=== PATIENT | male | born 1945 | race Caucasian/White ===

== ENCOUNTER 2017-11-10 19:07 | Emergency (ER) | payer MEDICARE ==
[~2017-11-10] VITALS: Ht 180.3 cm; Wt 74.8 kg
[~2017-11-10 19:07] MED LIST: ASPI81EC; CLOP75; DIPH50 PO; DOXE25; ERGO400 PO; OXYACE5T PO; RANI150 PO; RXOXYACE PO; [UNRECOGNIZED DRUG - REMARK]; [UNRECOGNIZED DRUG - SUPPLY]
== END 2017-11-10 21:47 | disposition home or self-care (01) ==
LOC: ER 19:07
DX: S61.011A Laceration without foreign body of right thumb without damage to nail, initial encounter (principal); Z87.891 Personal history of nicotine dependence; W26.8XXA Contact with other sharp object(s), not elsewhere classified, initial encounter
CPT/HCPCS: 12001; 99283

== ENCOUNTER 2024-01-03 10:55 | Emergency (ER) | payer MEDICARE, OTHER ==
[~2024-01-03] VITALS: Ht 177.8 cm; Wt 77.1 kg
[2024-01-03 11:56] LABS: Albumin, Blood 3.5 g/dL (3.4-5.0); Albumin/Globulin Ratio 1.1 (0.8-1.8); Bilirubin, Total 0.7 mg/dL (0.1-1.0); Bun/Creatinine Ratio 31.7 (12.0-20.0); Calcium, Blood 8.5 mg/dL (8.5-10.1); Creatinine, Blood 1.01 mg/dL (0.60-1.20); Globulin, Blood 3.3 g/dL (2.2-4.0); Potassium, Blood 5.2 mmol/L (3.5-5.5); Total Protein, Blood 6.8 g/dL (6.4-8.2)
[2024-01-03 13:42] LABS: Hematocrit 43.1 % (37.0-53.0); Hemoglobin 15.3 g/dL (13.5-17.5); Mean Corpuscular HGB 33.2 pg (26.0-34.0); Mean Corpuscular HGB Conc 35.5 g/dL (31.5-36.5); Mean Corpuscular Volume 94 fL (80-100); Mean Platelet Volume 9.1 fL (9.1-12.4); Platelet Count 189 K/mm3 (150-400); RDW Standard Deviation 41.4 fL (35.1-46.3); Red Blood Cell Count 4.61 M/mm3 (4.30-5.90)
[2024-01-03 14:08] LABS: BAND PERCENT MAN 1 % (0-8); BASOPHILS ABSOLUTE MAN 0.09 K/mm3 (0.00-0.23); BASOPHILS PERCENT MAN 1 % (0-2); EOSINOPHILS PERCENT MAN 0 % (0-6); LYMPHOCYTES % ATYPICAL MANUAL 1 % (0-0); LYMPHOCYTES ABSOLUTE MAN 0.63 K/mm3 (0.84-5.20); LYMPHOCYTES PERCENT MAN 6 % (21-46); METAMYELOCYTE ABSOLUTE MAN 0.18 K/mm3 (0.00-0.00); METAMYELOCYTE PERCENT MAN 2 % (0-0); MONOCYTES ABSOLUTE MAN 0.36 K/mm3 (0.16-1.47); MONOCYTES PERCENT MAN 4 % (4-13); MYELOCYTE ABSOLUTE MAN 0.27 K/mm3 (0.00-0.00); MYELOCYTE PERCENT MAN 3 % (0-0); NEUTROPHILS ABSOLUTE MAN 7.55 K/mm3 (1.96-9.15); SEG NEUTROPHILS PERCENT MAN 82 % (41-73); TOTAL CELLS COUNTED 100
[2024-01-03 14:15] VITALS: BP 176/98
== END 2024-01-03 14:28 | disposition home or self-care (01) ==
LOC: ER 10:55
PROVIDERS: Physician Assistant
DX: R07.9 Chest pain, unspecified (principal); Z87.891 Personal history of nicotine dependence
CPT/HCPCS: 71046; 80053; 84484; 85025; 85379; 99285-25

== ENCOUNTER 2024-08-09 09:40 | Observation (INO) | payer OTHER, MEDICARE ==
[~2024-08-09] VITALS: Ht 177.8 cm; Wt 72.3 kg
[2024-08-09 10:22] LABS: BASOPHILS ABSOLUTE AUTO 0.01 K/mm3 (0.00-0.23); BASOPHILS PERCENT AUTO 0 % (0-2); EOSINOPHILS ABSOLUTE AUTO 0.13 K/mm3 (0.00-0.68); EOSINOPHILS PERCENT AUTO 4 % (0-6); Hematocrit 40.7 % (37.0-53.0); Hemoglobin 14.3 g/dL (13.5-17.5); IMMATURE GRAN ABSOLUTE AUTO 0.02 K/mm3 (0.00-0.10); IMMATURE GRAN PERCENT AUTO 1 % (0-1); LYMPHOCYTES ABSOLUTE AUTO 0.97 K/mm3 (0.84-5.20); LYMPHOCYTES PERCENT AUTO 32 % (21-46); MONOCYTES ABSOLUTE AUTO 0.36 K/mm3 (0.16-1.47); MONOCYTES PERCENT AUTO 12 % (4-13); Mean Corpuscular HGB 33.6 pg (26.0-34.0); Mean Corpuscular HGB Conc 35.1 g/dL (31.5-36.5); Mean Corpuscular Volume 96 fL (80-100); Mean Platelet Volume 9.4 fL (9.1-12.4); NEUTROPHILS ABSOLUTE AUTO 1.51 K/mm3 (1.96-9.15); NEUTROPHILS PERCENT AUTO 50 % (41-73); Platelet Count 149 K/mm3 (150-400); RDW Coefficient Variation 12.4 % (11.7-14.2); Red Blood Cell Count 4.26 M/mm3 (4.30-5.90)
[2024-08-09 10:34] LABS: Bun/Creatinine Ratio 16.6 (12.0-20.0); Calcium, Blood 8.7 mg/dL (8.5-10.1); Creatinine, Blood 0.96 mg/dL (0.60-1.20); Potassium, Blood 4.4 mmol/L (3.5-5.5)
[2024-08-09] MEDS ORDERED: Nitroglycerin 0.4 MG SUBL SL ONE (11:45)
[2024-08-09] MEDS ORDERED: FLU VACC TS2024-25(6MOS UP)/PF 45 MCG/0.5 ML SYRINGE IM PRN (14:30)
[2024-08-09] MEDS ORDERED: Nitroglycerin 0.4 MG SUBL SL PRN (14:35)
[2024-08-09] MEDS ORDERED: Clopidogrel Bisulfate 300 MG Cap PO ONE (14:35)
[2024-08-09 15:21] LABS: Anti-Xa UFH, PHA Monitoring <0.10 IU/mL; International Normalized Ratio 1.01; Prothrombin Time Results 10.8 Sec (9.7-11.5)
[2024-08-09] MEDS ORDERED: Dose Adjust by Pharmacy XX STA ×2 (15:30→23:23)
[2024-08-09] MEDS ORDERED: Heparin Sodium 5000 Units/ML 1ML MDV IV ONE (15:35)
[2024-08-09] MEDS ORDERED: Heparin Sodium,Porcine/0.5 NS 500 ML IV SCH (15:35)
[2024-08-09 16:27] VITALS: BP 152/91
[2024-08-09] MEDS ORDERED: TAMS.4ER PO (16:39)
[2024-08-09] MEDS ORDERED: Atorvastatin 40 MG Tab PO SCH (16:55)
[2024-08-09] MEDS ORDERED: Metoprolol Tartrate 25 MG Tab PO SCH (17:00)
--- NOTE | 2024-08-09 17:17 | NUR ---
ADMIT SUMMARY THE PT WAS ADMITTED TO PCU 01 FROM THE ER. REPORT RECIEVED FROM PATRICK RN. PT WAS ABLE TO TRANSFER HIMSELF TO THE BED FROM THE [facility]. 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 SKIN W/O ANY BREAKDOWN OR INJURY. HEPARIN GTT INFUSING PER EMAR AND VERIFIED W/ ACCOUNT SERVICES REPRESENTATIVE. PT IS SR/ST 80'S-110'S ON TELE. BP W/ HTN, 25 MG LOPRESSER AND 80MG LIPITOR GIVEN PER EMAR. PT TAKES MEDICATIONS WHOLE WITH WATER. HE DENIES ANY ANGINA OR CHEST PRESSURE. HE IS ON RA W/ SP02 >93%. HE DENIES ANY SOB. DR. GARCIA CONSULTED AND SAW THE PT. PLAN FOR NPO AT 0000 AND ANGIOGRAM IN THE MORNING. ECHO ORDERED FOR TOMORROW. THE PT'S WAS CALLED AND UPDATED ON THE PLAN OF CARE. SEE NOTES FOR ANY UPDATES.
--- NOTE | 2024-08-09 21:18 | NUR ---
RECEIVED TROPONIN LAB RESULTS OF 2911 CALLED MD FONTANEZ AND INFORMED HIM OF THE RESULTS WITH NO NEW ORDERS
[2024-08-09 21:22] VITALS: BP 122/82
[2024-08-09] MEDS ORDERED: Tamsulosin HCl 0.4 MG Cap PO SCH (23:00)
[2024-08-10] VITALS (16 sets, daily range): BP systolic 94–145; BP diastolic 51–85
--- NOTE | 2024-08-10 01:32 | NUR ---
PHARMACY CALLED AT 2330 THAT PTS HEPARIN WAS AT 1.13 WHICH IS CRITICALLY HIGH. THEY STATED TO HOLD THE HEPARIN X 1 HOUR THEN START AGAIN AT 0030 AT 12U/KG/HR. HEPARIN WAS STOPPED AT 2330 AND RESTARTED AT 0030. LAB JUST CALLED WITH A CRITICAL HIGH ON HIS TROPONIN WHICH WAS 3529 WHICH CONTINUES TO TREND UP. CALLED MD AND INFORMED HIM OF THE CRITICAL TROPONIN.
[2024-08-10 05:06] LABS: Hematocrit 40.7 % (37.0-53.0); Hemoglobin 14.2 g/dL (13.5-17.5); Mean Platelet Volume 9.5 fL (9.1-12.4); Platelet Count 165 K/mm3 (150-400)
--- NOTE | 2024-08-10 05:32 | NUR ---
SHIFT SUMMARY PT ALERT ORIENTED X 4 ABLE TO VERBALIZE NEEDS CALLS APPROPRIATELY. HE HAD A ONE TIME LOW BP OF 97/59. REMAINS ON A HEPARIN DRIP AT 12U/KG/HR 17.5ML/HR. HIS TROPNINS HAVE BEEN INCREASING AND WERE 2912, 3529. HIS ANTIXA AT 2217 WAS 1.13 HEPARIN WAS PUT ON HOLD X 1 HR THEN RESTARTED AT A LOWER RATE. HE HAS A RT BKA HES BEEN NPO SINCE MIDNIGHT FOR A ECHO/ANGIOGRAM TO BE DONE TODAY. NO C/O CHEST PAIN OR PRESSURE. RESTING IN BED AT THIS TIME WITH CALL LIGHT IN REACH
[2024-08-10] MEDS ORDERED: Dose Adjust by Pharmacy XX STA (07:49)
[2024-08-10] MEDS ORDERED: Aspirin 81 MG Chew PO SCH (09:00)
[2024-08-10] MEDS ORDERED: Enoxaparin 40 MG/0.4 ML SYR SC SCH (09:00)
[2024-08-10] MEDS ORDERED: Clopidogrel Bisulfate 75 MG Tab PO SCH (09:00)
[2024-08-10] MEDS ORDERED: NS 250 ML IV ONE (09:09)
[2024-08-10] MEDS ORDERED: Heparin Sodium 1000 Units/ML 10ML MDV ONE (09:09)
[2024-08-10] MEDS ORDERED: Verapamil HCL 2.5 MG/ML 2ML Injection ONE (09:09)
[2024-08-10] MEDS ORDERED: NS 1,000 ML IV ONE ×2 (09:09→09:24)
[2024-08-10] MEDS ORDERED: FentaNYL Citrate 50 MCG/ML 2 ML Injection ONE (09:24)
[2024-08-10] MEDS ORDERED: Midazolam HCl 1MG / ML 2ML Vial ONE (09:24)
[2024-08-10] MEDS ORDERED: Tirofiban HCL Monohydrate 3.75 MG/15 ML Vial ONE (10:07)
[2024-08-10] MEDS ORDERED: Clopidogrel Bisulfate 300 MG Cap ONE (10:30)
--- NOTE | 2024-08-10 11:30 | NUR ---
PT BACK FROM ANGIOGRAM, BEDSIDE REPORT RECIEVED FROM AZUCENA BAUMAN RN. THE PT HAS RIGHT RADIAL ACCESS WITHA TR BAND INPLACE WITH 9CC OF AIR IN THE BALLOON. VS SEQUENCE SET UP AND VITAL SIGNS STABLE. THE PT STATES HE FEELS "MUCH BETTER" NOW. CAP REFILL IN RIGHT DISTAL FINGER W/ CAP REFILL <3 SEC. DENIES N/T. PT IS WITHOUT ANGINA OR CHEST PRESSURE. AFTER ABOUT 15 MINUTES BEING IN THE ROOM, THE RN WENT OT RECHECK ON THE PT'S WRIST AND A HEMATOMA HAD FORMED PROXIMAL TO THE TRBAND. OUTLINED WIHT A PEN AND 20 MINUTES OF MANUAL PRESSURE HELD. 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 DURING THE 20 MINUTES IN THE ROOM, POST ANGIO AND STENT EDUCATION WAS PROVIDED TO THE PT. CROSSBAR FRAME WIRER IN THE ROOM AND PREFORMING AN ECHO. THE PT'S CALLED THE BEDSIDE AND WAS UPDATED ON CARE. PT ATE A LATE BREAKFAST AND TOLERATED PO INTAKE WELL. SEE NOTES FOR ANY UPDATES.
--- NOTE | 2024-08-10 14:53 | NUR ---
TR BAND RECOVERED tr band fully recovered. cleaned with chg swab and tegaderm place over site. arm board intact. vital signs remain stable. bruising noted proximal to site. outlined. slight oozing noted. no pain. see notes for updates.
--- NOTE | 2024-08-10 17:31 | NUR ---
SHIFT SUMMARY THE PT REMAINS A&OX4, CALLS APPROPRAITELY, AND MAKES THEIR NEEDS KNOWN. PT HAS A R BKA AND USES PROSTESIS. SBA FOR TX. ON TELE SR 80'S, BP STABLE. HE IS ON RA AND DENIES ANY SOB. ANGIOGRAM TODAY W/ 1 STENT. SEE PREVIOUSE NOTE. SOME BRUISING STILL NOTED BUT TEGADERM C/D/I. NO C/O ANGINA OR CHEST PRESSURE. SEE NOTES FOR ANY UPDATES.
[2024-08-10] MEDS ORDERED: Atorvastatin 40 MG Tab PO SCH (21:00)
--- NOTE | 2024-08-10 23:11 | NUR ---
ASSUMPTION OF CARE ASSUMED PT'S CARE AT 1900,PT RESTING IN BED WATCHING TV.BEDSIDE REPORT COMPLETED.PLAN OF CARE REVIEWED WITH PT.PT DENIES CHEST PAIN/DISCOMFORT.DENIES GENERALIZED PAIN,DENIES NEEDS.CALL LIGHT AND PT'S ITEMS WITHIN REACH.WILL CONTINUE TO MONITOR.
[2024-08-11 00:24] VITALS: BP 125/84
[2024-08-11 03:32] VITALS: BP 98/59
--- NOTE | 2024-08-11 06:06 | NUR ---
SHIFT SUMMARY PT HAS BEEN SLEEPING MOST OF THE NIGHT,CALLS APPROPRIATELY.NO REPORTS OF CHEST PAIN/DISCOMFORT.RIGHT RADIAL SITE REMAINS BRUISED,BRUISING REMAINS WITHIN THE OUTLINED AREA.PT STILL SLEEPIONG THIS MORNING,DENIES PAIN,DENIES NEEDS.CALL LIGHT AND PT'S ITEMS WITHIN REACH.WILL GIVE REPORT TO DAYSHIFT NURSE FOR CONTINUITY OF CARE.
[2024-08-11 08:08] VITALS: BP 108/62
[2024-08-11 08:30] LABS: BASOPHILS ABSOLUTE AUTO 0.02 K/mm3 (0.00-0.23); BASOPHILS PERCENT AUTO 1 % (0-2); EOSINOPHILS ABSOLUTE AUTO 0.14 K/mm3 (0.00-0.68); EOSINOPHILS PERCENT AUTO 3 % (0-6); Hematocrit 43.5 % (37.0-53.0); Hemoglobin 14.8 g/dL (13.5-17.5); IMMATURE GRAN ABSOLUTE AUTO 0.02 K/mm3 (0.00-0.10); IMMATURE GRAN PERCENT AUTO 1 % (0-1); LYMPHOCYTES ABSOLUTE AUTO 1.28 K/mm3 (0.84-5.20); LYMPHOCYTES PERCENT AUTO 30 % (21-46); MONOCYTES ABSOLUTE AUTO 0.48 K/mm3 (0.16-1.47); MONOCYTES PERCENT AUTO 11 % (4-13); Mean Corpuscular HGB 33.5 pg (26.0-34.0); Mean Corpuscular Volume 98 fL (80-100); Mean Platelet Volume 9.6 fL (9.1-12.4); NEUTROPHILS ABSOLUTE AUTO 2.39 K/mm3 (1.96-9.15); NEUTROPHILS PERCENT AUTO 55 % (41-73); Platelet Count 176 K/mm3 (150-400); RDW Coefficient Variation 12.5 % (11.7-14.2); RDW Standard Deviation 45.5 fL (35.1-46.3); Red Blood Cell Count 4.42 M/mm3 (4.30-5.90); White Blood Cell Count 4.33 K/mm3 (4.00-11.30)
[2024-08-11 08:41] LABS: Bun/Creatinine Ratio 20.2 (12.0-20.0); Creatinine, Blood 1.09 mg/dL (0.60-1.20)
[2024-08-11] MEDS ORDERED: ASPI81CH PO (09:33)
[2024-08-11] MEDS ORDERED: CLOP75 PO (09:33)
[2024-08-11] MEDS ORDERED: METO25ER PO (09:34)
[2024-08-11] MEDS ORDERED: ATOR40TA PO (09:35)
[2024-08-11 10:04] VITALS: BP 130/79
--- NOTE | 2024-08-11 10:05 | NUR ---
PT D/C'D AT 1005, HE IS TAKING A TAXI HOME. MEDICATIONS FAXED TO [facility]. ALL BELONGINGS SENT WITH THE PT. DISCHARGE QUESTIONS ANSWERED AND PT VERY PROCIENT WITH THE EDUCATION AND READ ALL THE HANDOUTS MULTIPLE TIES 08/10. VS STABLE AT DISCHARGE. NO ANGINA OR CHEST PRESSURE. TEGADERM C/D/I.
== END 2024-08-11 10:05 | disposition home or self-care (01) ==
LOC: ER 09:40 → PCU 09:41
PROVIDERS: Emergency Medicine; Internal Medicine; ADMIT Family Medicine
DX: I21.4 Non-ST elevation (NSTEMI) myocardial infarction (principal); I25.10 Atherosclerotic heart disease of native coronary artery without angina pectoris; I10 Essential (primary) hypertension; I73.9 Peripheral vascular disease, unspecified; Z87.891 Personal history of nicotine dependence; Z89.511 Acquired absence of right leg below knee
CPT/HCPCS: 36415; 76937; 80048; 84484; 85014; 85018; 85025; 85049; 85347; 85520; 85610; 85730; 93005; 93010; 93306; 93454; 99152; 99153; 99285-25; A9270; C1725; C1769; C1874; C1887; C1894; C9600; G0378; J1644; J2250; J3010; J3246; J7030; J7050; Q9967